=== PATIENT | female | born 1955 | race African-American/Black ===

== ENCOUNTER 2017-11-28 10:59 | Emergency (ER) | payer MEDICARE, OTHER ==
[~2017-11-28] VITALS: Ht 157.5 cm; Wt 56.8 kg
[2017-11-28 11:11] VITALS: BP 123/81
== END 2017-11-28 12:30 | disposition home or self-care (01) ==
LOC: ED 12:05
DX: F32.9 Major depressive disorder, single episode, unspecified (principal); Z76.0 Encounter for issue of repeat prescription; F17.200 Nicotine dependence, unspecified, uncomplicated; Z79.899 Other long term (current) drug therapy
CPT/HCPCS: 99283